=== PATIENT | female | born 1985 | race African-American/Black ===

== ENCOUNTER 2017-01-21 18:08 | Emergency (ER) | payer MEDICAID ==
[~2017-01-21] VITALS: Ht 165.1 cm; Wt 117.0 kg
[2017-01-21 18:20] VITALS: BP 148/95
[2017-01-21] MEDS ORDERED: NORVASC10 MG ORAL (18:28)
[2017-01-21] MEDS ORDERED: HYDROCHLOROTH12.5 MG ORAL (18:29)
[2017-01-21] MEDS ORDERED: Norco 7.5mg/325mg tab ORAL ONE (19:15)
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
[2017-01-21] MEDS ORDERED: BACITRACIN-P28.35 GM TP (19:37)
[2017-01-21] MEDS ORDERED: CHLORHEXIDINE473 ML MM (19:37)
[2017-01-21] MEDS ORDERED: NORCO 5-325 TA1 EACH ORAL (19:37)
[2017-01-21 19:45] VITALS: BP 148/95
[2017-01-21] MEDS ORDERED: Tetanus/Diptheria/Pertussis Vaccine 0.5ml Syr IM ONE (19:45)
== END 2017-01-21 19:45 | disposition home or self-care (01) ==
LOC: EMR 18:40
DX: S00.511A Abrasion of lip, initial encounter (principal); S00.11XA Contusion of right eyelid and periocular area, initial encounter; Y08.09XA Assault by strike by other specified type of sport equipment, initial encounter; Y92.810 Car as the place of occurrence of the external cause; K08.89 Other specified disorders of teeth and supporting structures; Z23 Encounter for immunization; Z88.0 Allergy status to penicillin; Z91.013 Allergy to seafood; I10 Essential (primary) hypertension
CPT/HCPCS: 90471; 90715; 99283